=== PATIENT | female | born 1985 | race African-American/Black ===

== ENCOUNTER 2018-01-21 19:44 | Observation (INO) | payer OTHER, MEDICAID ==
[~2018-01-21] VITALS: Ht 149.9 cm; Wt 63.5 kg
[2018-01-21] MEDS ORDERED: LACTATED RINGERS 1,000 ML IV SCH (19:56)
[2018-01-21 20:36] LABS: CLARITY URINE CLOUDY (CLEAR); COLOR URINE YELLOW (YELLOW); KETONES URINE TRACE (NEGATIVE); LEUKOCYTE ESTERASE URINE 1+ (NEGATIVE); NITRITE URINE NEGATIVE (NEGATIVE); OCCULT BLOOD URINE NEGATIVE (NEGATIVE); PROTEIN URINE 1+ (NEGATIVE); SPECIFIC GRAVITY URINE 1.025 (1.005-1.030)
[2018-01-21] MEDS ORDERED: CEFAZOLIN 2,000 MG in DEXT 5% WATER 100 ML IV SCH (22:15)
[2018-01-21] MEDS ORDERED: PREN1TAB78 MT (22:30)
== END 2018-01-21 23:25 | disposition home or self-care (01) ==
LOC: L&D 19:44
PROVIDERS: ADMIT Obstetrics & Gynecology; ATTEND Obstetrics & Gynecology
DX: O26.893 Other specified pregnancy related conditions, third trimester (principal); R10.9 Unspecified abdominal pain; Z3A.36 36 weeks gestation of pregnancy
CPT/HCPCS: 36415; 76805; 76810; 76815; 76818; 81003; 86850; 86900; 86901; 96365; 99281; G0378; J0690; J7120; 96360; 96361; J7060